=== PATIENT | female | born 1975 | race Caucasian/White ===

== ENCOUNTER → 2021-02-13 | Outpatient (CLI) | payer OTHER ==
--- NOTE | 2021-02-20 10:33 | MM ---
Reason for exam: screening (asymptomatic). Baseline mammogram. History: Patient had first child at age 32. Family history of breast cancer in paternal grandmother at age 52 and breast cancer in 2 paternal aunts. Physical Findings: Nurse did not find any significant physical abnormalities on exam. MG 3D Screening Mammo W/Cad Bilateral CC and MLO view(s) were taken. The breast tissue is heterogeneously dense. This may lower the sensitivity of mammography. Circumscribed 3mm low density to isodense nodularity lateral anterior right CC view, suspected small intramammary node. 6 month follow up recommended. Otherwise, no discrete abnormality. ASSESSMENT: Probably benign, BI-RAD 3 RECOMMENDATION: Follow-up diagnostic mammogram of the right breast in 6 months.
== END | disposition home or self-care (01) ==
LOC: RADMAMWWP 14:18
PROVIDERS: ATTEND Family Medicine
DX: Z12.31 Encounter for screening mammogram for malignant neoplasm of breast (principal); Z80.3 Family history of malignant neoplasm of breast
CPT/HCPCS: 77063; 77067

== ENCOUNTER → 2021-08-17 | Outpatient (CLI) | payer OTHER ==
--- NOTE | 2021-08-17 13:29 | MM ---
Reason for exam: follow-up at short interval from prior study. Last mammogram was performed 6 months ago. History: Patient had first child at age 32. Family history of breast cancer in paternal grandmother at age 52 and breast cancer in 2 paternal aunts. Physical Findings: Nurse did not find any significant physical abnormalities on exam. MG 3D Diag Mammo W/Cad RT CC and MLO view(s) were taken of the right breast. Prior study comparison: February 13, 2021, bilateral MG 3d screening mammo w/cad. The breast tissue is heterogeneously dense. This may lower the sensitivity of mammography. 8-9 o'clock right breast nodularity is unchanged for 6 months. Additional 6 month follow up recommended. No significant new findings when compared with previous films. These results were verbally communicated with the patient and result sheet given to the patient on 08/17/21. ASSESSMENT: Probably benign, BI-RAD 3 RECOMMENDATION: Follow-up diagnostic mammogram of both breasts in 6 months.
== END | disposition home or self-care (01) ==
LOC: RADMAMWWP 11:56
PROVIDERS: ATTEND Family Medicine
DX: R92.8 Other abnormal and inconclusive findings on diagnostic imaging of breast (principal); Z80.3 Family history of malignant neoplasm of breast
CPT/HCPCS: 77065; G0279; 77061

== ENCOUNTER → 2022-11-28 | Outpatient (CLI) | payer OTHER ==
--- NOTE | 2022-11-28 15:11 | NM ---
EXAMINATION TYPE: NM stress cardiolite complete DATE OF EXAM: 11/28/2022 COMPARISON: NONE CLINICAL INDICATION: Female, 47 years old with history of Z82.49 fam hx ischemic heart disease; TECHNIQUE: After the intravenous administration of 9.2 mCi Tc 99m Sestamibi - Rest images obtained 6 0 minutes post injection. The patient exercised using a CHUN protocol and 1 minute prior to peak e xercise was injected with 24.8 mCi Tc 99m Sestamibi - Stress images obtained 45 minutes post injectio n. FINDINGS: Targeted heart rate was achieved during performance of the study. Review of stress and rest SPECT ion ges demonstrates no distinct perfusion abnormality. Gated analysis shows normal wall motion with an estimated left ventricular ejection fraction of 73 %. IMPRESSION: No scintigraphic evidence for reversible ischemia
--- NOTE | 2022-11-28 16:53 | CA ---
Exercise Nuclear Stress Test Report Name: Christina Chahal Exam Date: 11/28/2022 10:24 Exam Location: [facility] Stress Ht (in): 64 Wt (lb): 165 BSA: 1.80 Ordering Phys: Kip Mccann MD Referring Phys: Kat Man PAC Technologist: PAIGE,, Age: 47 Gender: F : 1975 Procedure CPT: Indications: Z82.49 FAM HX ISCHEMIC HEART DISEASE ICD-10 Codes: Patient History: Palpitations and hypertension Medications: Meds past 24 hrs: Pretest Chest Pain: STRESS TEST Ralf Protocol Exercise Duration (min:sec): 06:[address] Depressions (mm): Angina Score: Pitt Score: Resting HR (bpm): 77 Peak HR (bpm): 153 Resting BP (mmHg): 136 / 88 Peak BP (mmHg): 202 / 92 MPHR: 174 Target HR: 148 % MPHR: 88 METS: 7.1 Total Dose: Peak Dose: Atropine: Double Product: 79110 BP Response: Stress Termination: TARGET HR REACHED/MAX EXERTION Stress Symptoms: DIFFICULTY IN BREATHING Stress Summary: ECG ANALYSIS Resting ECG: Stress ECG: CONCLUSIONS Baseline EKG revealed normal sinus rhythm with poor R-wave progression. Patient walked on a standard Ralf protocol for 6 minutes and achieved a maximum heart rate of 153 bpm which is more than 85% of predicted maximal. She developed fatigue and shortness of breath. No angina. No arrhythmia EKG was unremarkable for any ischemic changes. This is a negative stress test with limited exercise capacity. The nuclear scan results which are more pertinently be reported with radiologist Dr. Obey Barros MD (Electronically Signed) Final Date: 28 Nov 2022 16:52
== END | disposition home or self-care (01) ==
LOC: RADNMMAIN 08:42
PROVIDERS: ATTEND Family Medicine
DX: Z82.49 Family history of ischemic heart disease and other diseases of the circulatory system (principal)
CPT/HCPCS: 93017; 78452; A9500

== ENCOUNTER → 2023-03-21 | Outpatient (CLI) | payer OTHER ==
--- NOTE | 2023-03-23 16:54 | MM ---
Reason for Exam: Screening (asymptomatic). Last mammogram was performed 1 year(s) and 1 month(s) ago. Patient History: Menarche at age 13. First Full-Term at age 32. Late child-bearing (after 30). Premenopausal. Paternal grandmother had breast cancer, age 52. Paternal aunt had breast cancer, age 80. Paternal aunt had breast cancer, age 50. Risk Values: Shante 5 year model risk: 1.2%. NCI Lifetime model risk: 12.7%. Prior Study Comparison: 02/13/2021 Bilateral Screening Mammogram, [facility]. 08/17/2021 Right Diagnostic Mammogram, [facility]. 03/05/2022 Bilateral MG 3D diag mammo w/cad JOEY, [facility]. Tissue Density: The breast tissue is heterogeneously dense. This may lower the sensitivity of mammography. Findings: Analyzed By CAD. Asymmetric density outer aspect of the left breast on the cc view middle to posterior depth appears more defined and incompletely disperses on 3-D images. This may represent superimposition shadow but further evaluation is recommended. Otherwise, no significant change. Overall Assessment: Incomplete: need additional imaging evaluation, BI-RAD 0 Management: Special View Mammogram of the left breast. Including spot 3-D CC, 3-D CC rolled medial, and 3-D ML views. Targeted left breast ultrasound if any persisting abdomen only. [facility] will attempt to contact patient to return for supplemental views and ultrasound if indicated. Electronically signed and approved by: Michael Gonzalez M.D. Radiologist
== END | disposition home or self-care (01) ==
LOC: RADMAMWWP 15:02
PROVIDERS: ATTEND Family Medicine
DX: Z12.31 Encounter for screening mammogram for malignant neoplasm of breast (principal); Z80.3 Family history of malignant neoplasm of breast
CPT/HCPCS: 77063; 77067

== ENCOUNTER → 2023-04-17 | Day surgery (SDC) | payer OTHER ==
--- NOTE | 2023-04-24 10:43 | MM ---
Reason for Exam: Post Procedure Mammogram. Last screening mammogram was performed less than 1 month ago. Patient History: Menarche at age 13. First Full-Term at age 32. Late child-bearing (after 30). Premenopausal. Paternal grandmother had breast cancer, age 52. Paternal aunt had breast cancer, age 80. Paternal aunt had breast cancer, age 50. Risk Values: Shante 5 year model risk: 1.2%. NCI Lifetime model risk: 12.7%. Prior Study Comparison: 03/05/2022 Bilateral MG 3D diag mammo w/cad JOEY, [facility]. 03/21/2023 Bilateral MG 3D screening mammo w/cad, [facility]. 04/05/2023 Left MG 3D work up w/cad , [facility]. Tissue Density: Left: The breast tissue is heterogeneously dense. This may lower the sensitivity of mammography. Pathology Description: Location: 3 o'clock. Marker Left Behind. Needle Type: Mammotome Cores: 4 Gauge: 13 The procedure of ultrasound guided core biopsy was explained to the patient. Benefits, alternatives, and risks were discussed. An informed consent was then obtained. The patient was placed in supine positioning for imaging and for the procedure. The overlying skin was prepped and draped in usual sterile fashion. Lidocaine buffered with bicarbonate was used as anesthetic into the skin and subcutaneous tissue up to area of concern in the left breast. Under ultrasound guidance, a 12-gauge vacuum assisted biopsy gun device was used to obtain 4 core samples. Following this, a biopsy clip was left in lesion. The patient tolerated the procedure well without any immediate complication. The patient was kept in the radiology department for short stay after the procedure and then discharged home in stable condition. Postprocedure mammogram: The patient was transferred to mammography for physician ordered post procedure mammogram for clip placement verification. Postprocedure mammogram demonstrates biopsy clip to be in appropriate position. Impression: Successful, uncomplicated ultrasound guided core biopsy of area of concern in the left breast, full pathology results to follow. Pathology Results: Result: Benign, Fibroadipose tissue. LEFT BREAST, THREE O'CLOCK POSITION, ULTRASOUND GUIDED CORE BIOPSY: Benign mammary fibroadipose tissue with fragments of reactive lymph node tissue (see note). Current specimen negative for diagnostic malignancy. Notes It is noted there is a 03-21-23 mammogram which showed an asymmetric density within the outer aspect of the left breast. Clinical correlation with imaging studies is suggested. Intradepartmental consultation with Dr. Jose Roberto Hughes is in agreement with the assessment. Overall Assessment: Benign Assessment: MG diagnostic mammo LT wo CAD. - Left: Benign, BI-RAD 2. Management: Diagnostic Breast Ultrasound of the left breast in 6 months. Electronically signed and approved by: David Mari D.O.
== END ==
LOC: RADUSWWP 07:43
PROVIDERS: ATTEND Family Medicine
DX: R59.9 Enlarged lymph nodes, unspecified (principal)
CPT/HCPCS: 88305; 77065; 19083; A4648

== ENCOUNTER → 2023-09-19 | Outpatient (CLI) | payer OTHER ==
--- NOTE | 2023-09-19 14:22 | USB ---
Reason for Exam: Follow-up at short interval from prior study. Patient History: Menarche at age 13. First Full-Term at age 32. Late child-bearing (after 30). Premenopausal. 04/17/2023, Benign US biopsy breast VAD LT on the left side. Paternal grandmother had breast cancer, age 52. Paternal aunt had breast cancer, age 80. Paternal aunt had breast cancer, age 50. Risk Values: Shante 5 year model risk: 1.7%. NCI Lifetime model risk: 15.0%. Technique: Method: Targeted. Prior Study Comparison: 03/21/2023 Bilateral MG 3D screening mammo w/cad, [facility]. 04/05/2023 Left MG 3D work up w/cad LT, [facility]. 04/17/2023 Left MG diagnostic mammo LT wo CAD., [facility]. Findings: The lower outer quadrant of the left breast, the axilla of the left breast and the retroareolar of the left breast were scanned. Postbiopsy changes noted in place. No evidence for recurrent mass.. Overall Assessment: Benign, BI-RAD 2 Management: Screening Mammogram of both breasts in 6 months. A clinical breast exam by your physician is recommended on an annual basis and results should be correlated with mammographic findings. This exam should not preclude additional follow-up of suspicious palpable abnormalities. Results were given to the patient verbally at the time of exam. Electronically signed and approved by: Julio C Hensley M.D. Radiologis
== END | disposition home or self-care (01) ==
LOC: RADUSWWP 13:54
PROVIDERS: ATTEND Family Medicine
DX: R92.8 Other abnormal and inconclusive findings on diagnostic imaging of breast (principal); Z80.3 Family history of malignant neoplasm of breast

== ENCOUNTER → 2024-09-15 | Outpatient (CLI) | payer OTHER ==
--- NOTE | 2024-09-15 17:43 | MM ---
Reason for Exam: Screening (asymptomatic). Last mammogram was performed 1 year(s) and 6 month(s) ago. Patient History: Menarche at age 13. First Full-Term at age 32. Late child-bearing (after 30). Premenopausal. 04/17/2023, Benign US biopsy breast VAD LT on the left side. Paternal grandmother had breast cancer, age 52. Paternal aunt had breast cancer, age 80. Paternal aunt had breast cancer, age 50. Risk Values: Shante 5 year model risk: 1.7%. NCI Lifetime model risk: 14.7%. Prior Study Comparison: 03/21/2023 Bilateral MG 3D screening mammo w/cad, [facility]. 04/05/2023 Left MG 3D work up w/cad LT, [facility]. 04/17/2023 Left MG diagnostic mammo LT wo CAD., [facility]. Tissue Density: The breasts are heterogeneously dense, which may obscure small masses. Findings: Analyzed By CAD. Unchanged intramammary lymph node on both sides. Microclip left breast from prior biopsy. Areas of bilateral asymmetric densities remain unchanged. There is no suspicious group of microcalcifications or new suspicious mass in either breast. Overall Assessment: Benign, BI-RAD 2 Management: Screening Mammogram of both breasts in 1 year. Patient should continue monthly self-breast exams. A clinical breast exam by your physician is recommended on an annual basis. This exam should not preclude additional follow-up of suspicious palpable abnormalities. Note on Shante scores and lifetime risk: 1. A Shante score greater than 3% is considered moderate risk. If this is the case, consider specialist referral to assess eligibility for a risk reducing agent. 2. If overall lifetime risk for the development of breast cancer is 20% or higher, the patient may qualify for future screening with alternating mammogram and breast MRI. [facility], , 09/15/2024 5:40 PM. Electronically signed and approved by: Michael Gonzalez M.D. Radiologist
== END | disposition home or self-care (01) ==
LOC: RADMAMWWP 08:00
PROVIDERS: ATTEND Family Medicine
DX: Z12.31 Encounter for screening mammogram for malignant neoplasm of breast (principal); R92.333 Mammographic heterogeneous density, bilateral breasts; Z80.3 Family history of malignant neoplasm of breast
CPT/HCPCS: 77063; 77067